=== PATIENT | male | born 1940 | race Asian ===

== ENCOUNTER 2017-02-28 09:48 | Day surgery (SDC) | payer MEDICARE, OTHER ==
[~2017-02-28] VITALS: Ht 182.9 cm; Wt 86.1 kg
[~2017-02-28 09:48] MED LIST: ASPI-664 PO; METO-319 PO; METO-335 PO; NIACIN PO; NIFE60TA7 PO
[2017-02-28] MEDS ORDERED: PROPOFOL 20 ML ONE (10:58)
[2017-02-28] MEDS ORDERED: ZANTAC (11:02)
[2017-02-28] MEDS ORDERED: DEXILANT (11:02)
[2017-02-28 11:14] VITALS: BP 164/84; PULSE 88; RESP 18
--- NOTE | 2017-02-28 11:56 | OPPN ---
Date/Time of Note Date/Time of Note DATE: 02/28/17 TIME: 11:54 Operative Report Preoperative Diagnosis History of melena Change in bowel habit Postoperative Diagnosis Gastritis Sigmoid polyp was removed Internal hemorrhoids Operation/Procedure Performed Esophagogastroduodenoscopy and biopsy Colonoscopy and polypectomy Surgeon see signature line assistant branch manager None Anesthesia: MAC Estimated blood loss: none Transfusion Required none Specimen Gastric mucosal biopsy Sigmoid polyp Grafts/Implants none Complications none CAMELIA REEDER MD Feb 28, 2017 11:56
[2017-02-28 12:12] VITALS: BP 128/74; RESP 20
--- NOTE | 2017-02-28 12:24 | GILP ---
DATE OF PROCEDURE: 02/28/2017 SURGEON: Rl Parsons MD PROCEDURE PERFORMED: 1. Colonoscopy and polypectomy. 2. Esophagogastroduodenoscopy and biopsy. PREOPERATIVE DIAGNOSES: 1. History of melena. 2. Change in bowel habits. 3. History of peptic ulcer disease. POSTOPERATIVE DIAGNOSES: 1. Gastritis with erosions. 2. Gastric mucosal biopsies were taken for Helicobacter pylori test. 3. Colonoscopy all the way to the cecum. 4. Small sigmoid colon polyp was removed using the snare and electrocautery. 5. Internal hemorrhoids. INDICATION: Mr. Kingsley Pereira, is a 76-year-old male patient who had a history of melena. He had a history of peptic ulcer disease. He also noticed change in the bowel habits. He never had a screening colonoscopy. The patient was scheduled for endoscopy and colonoscopy for further evaluation. The procedures and possible complications were well explained to the patient. He understood and consented to the procedures. DESCRIPTION OF PROCEDURE: Under influence of anesthesia, the gastroscope was carefully introduced into the esophagus. Under direct vision, it was advanced to the stomach, into the pylorus, into the duodenal bulb, and descending duodenum. FINDINGS: ESOPHAGUS: Mucosa was normal. STOMACH: The patient had gastritis with erosions. Gastric mucosal biopsies were taken for Helicobacter pylori test. Duodenum was normal. COLONOSCOPY: The colonoscope was carefully introduced the rectum. Under direct vision, it was advanced all the way to the cecum. FINDINGS: The patient had a sigmoid colon polyp and it was removed using the snare and electrocautery. The patient was noted to have internal hemorrhoids. He tolerated the procedures very well. There was no complication from the procedures. At the end of procedures, he was awake with stable vital signs. He was discharged home in the care of his family. IMPRESSION: Please see postop diagnoses. PLAN: 1. Continue Dexilant and Zantac. 2. Await histopathology reports. 3. Next screening colonoscopy in 5 years. Dictated By: MD AMBER Arzola/casper/gary /Document#: [id number] CC: Rl Parsons MD;*EndCC*
--- NOTE | 2017-03-04 08:42 | CONS ---
PATIENT NAME: SHARRI JENNINGS DATE OF ADMISSION: DATE OF CONSULTATION: 02/14/[address] Minor: I thank you very much for this kind referral. Mr. Sharri Jennings is a 76-year-old male patient who has been referred to me for further evaluation of upper abdominal pain associated with melena. The patient has been taking Dexilant and Zantac. Patient give past history of peptic ulcer disease. He has been taking baby aspirin. His appetite has been somewhat poor and he has been losing weight. No history of gallstones or liver disease. The patient also complains of change in the bowel habits with diarrhea. No past history of inflammatory bowel disease or colon neoplasm. Patient has never had a screening colonoscopy. PAST MEDICAL HISTORY: He is hypertensive, not a diabetic. No heart disease or lung problem or kidney disease. He has hyperlipidemia. He is status post appendectomy. SOCIAL HISTORY: Nonsmoker. Drinks alcohol but denies abuse. FAMILY HISTORY: No history of gastrointestinal tract neoplasm. ALLERGIES: NO SIGNIFICANT DRUG ALLERGY. MEDICATION: 1. Dexilant 60 mg p.o. daily. 2. Zantac 150 mg p.o. daily. 3. Metoprolol 50 mg p.o. daily. 4. Nifedipine ER 60 mg p.o. daily. 5. Niacin 500 mg p.o. daily. 6. Aspirin 81 mg p.o. daily. PHYSICAL EXAMINATION: VITAL SIGNS: He is 6 feet tall and he weighs 205 pounds. BMI 28. Blood pressure 136/84. CARDIAC: Normal heart sounds. LUNGS: Clear. ABDOMEN: Soft. No masses. Normal bowel sounds. NEUROLOGIC: Normal neurological exam. IMPRESSION: 1. Upper abdominal pain. 2. History of melena. 3. History of peptic ulcer disease. 4. Weight loss. 5. Change in bowel habits with diarrhea. 6. The patient has never had a screening colonoscopy. 7. Hypertension. 8. Hyperlipidemia. 9. Status post appendectomy. 10. The patient is on baby aspirin a day. 11. Elevated body mass index. PLAN: 1. Continue Dexilant and Zantac. 2. Endoscopic examination and colonoscopy for further evaluation. Follow up with a primary MD for the management of evaluated BMI and hypertension. The procedures and possible complications were well explained to the patient. He understands and consents to the procedures. I thank you once again. With warmest personal regards, Dictated By: MD AMBER Arzola/casper/benita /Document#: [id number]
== END 2017-02-28 13:38 | disposition home or self-care (01) ==
LOC: GIL 09:48
PROVIDERS: ATTEND Internal Medicine Gastroenterology
DX: K29.70 Gastritis, unspecified, without bleeding (principal); D12.5 Benign neoplasm of sigmoid colon; K64.8 Other hemorrhoids; I10 Essential (primary) hypertension; E78.5 Hyperlipidemia, unspecified; Z79.82 Long term (current) use of aspirin
CPT/HCPCS: 87081; 88305